=== PATIENT | female | born 1945 | race Caucasian/White ===

== ENCOUNTER 2016-09-05 12:28 | Emergency (ER) | payer MEDICARE, OTHER ==
[2016-09-05] MEDS ORDERED: ASPIRIN 81 MG TABLET, CHEWABLE PO ONE (12:34)
[2016-09-05 13:10] LABS: ABSOLUTE BASOPHILS # (AUTO) 0.1 10^3/uL (0.0-0.2); ABSOLUTE EOSINOPHILS # (AUTO) 0.1 10^3/uL (0.0-0.6); ABSOLUTE LYMPHOCYTES (AUTO) 1.7 10^3/uL (0.5-4.7); ABSOLUTE MONOCYTES (AUTO) 0.5 10^3/uL (0.1-1.4); ABSOLUTE NEUT (AUTO) 5.2 10^3/uL (1.7-8.2); BASOPHILS % (AUTO) 0.9 % (0-2); EOSINOPHILS % (AUTO) 1.8 % (0-6); HEMATOCRIT 38.1 % (36.0-47.0); HEMOGLOBIN 12.9 g/dL (12.0-15.5); HGB HCT DIFFERENCE 0.6; LYMPHOCYTES % (AUTO) 22.4 % (13-45); MEAN CORPUSCULAR HEMOGLOBIN 29.8 pg (27.0-33.4); MEAN CORPUSCULAR HGB CONC 33.9 g/dL (32.0-36.0); MEAN CORPUSCULAR VOLUME 88 fl (80-97); RED BLOOD COUNT 4.34 10^6/uL (3.72-5.28); RED CELL DISTRIBUTION WIDTH 14.5 % (11.5-14.0); SEGMENTED NEUTROPHILS % (AUTO) 68.9 % (42-78); WHITE BLOOD COUNT 7.5 10^3/uL (4.0-10.5)
[2016-09-05 13:29] LABS: ALANINE AMINOTRANSFERASE 22 U/L (9-52); ALBUMIN 3.9 g/dL (3.5-5.0); ALKALINE PHOSPHATASE 69 U/L (38-126); ANION GAP 11 (5-19); ASPARTATE AMINO TRANSFERASE 27 U/L (14-36); BILIRUBIN,DIRECT 0.1 mg/dL (0.0-0.4); BILIRUBIN,TOTAL 0.5 mg/dL (0.2-1.3); BLOOD UREA NITROGEN 15 mg/dL (7-20); CALCIUM 9.4 mg/dL (8.4-10.2); CARBON DIOXIDE 25 mmol/L (22-30); CHLORIDE 105 mmol/L (98-107); CREATINE KINASE 105 U/L (30-135); CREATININE RESULT 0.85 mg/dL (0.52-1.25); GLUCOSE 109 mg/dL (75-110); POTASSIUM 4.3 mmol/L (3.6-5.0); TOTAL PROTEIN 6.6 g/dL (6.3-8.2)
[2016-09-05 13:39] LABS: CREATINE KINASE MB 3.8 ng/mL (<4.55)
[2016-09-05 13:43] LABS: TROPONIN I 0.163 ng/mL
--- NOTE | 2016-09-05 13:46 | ER Document Report ---
ED General - General Chief Complaint: Chest Pain Stated Complaint: CHEST PAIN Mode of Arrival: Medic Information source: Patient Notes: 71 yr old female hx of hypercholesterolemia presents with complaints of chest pain, achy pressure yesterday and then worsened again today with mild radiation of pain to jaw and shoulder. denies any previous pain TRAVEL OUTSIDE OF THE [place] IN LAST 30 DAYS: No - HPI Onset: Yesterday Onset/Duration: Intermittent Quality of pain: Pressure Severity: Mild Pain Level: 1 Associated symptoms: Chest pain Exacerbated by: Denies Relieved by: Denies Similar symptoms previously: No Recently seen / treated by doctor: No - Related Data Allergies/Adverse Reactions: No Known Allergies Allergy (Unverified 02/02/11 16:16) Past Medical History - Social History Smoking Status: Never Smoker Cigarette use (# per day): No Chew tobacco use (# tins/day): No Smoking Education Provided: No Frequency of alcohol use: None Drug Abuse: None Family History: Reviewed & Not Pertinent - Past Medical History Cardiac Medical History: Denies: Hx Coronary Artery Disease, Hx Heart Attack, Hx Hypertension Pulmonary Medical History: Denies: Hx Asthma, Hx Bronchitis, Hx Pneumonia Neurological Medical History: Denies: Hx Cerebrovascular Accident, Hx Seizures Musculoskeltal Medical History: Reports Hx Arthritis Past Surgical History: Denies: Hx Hysterectomy, Hx Pacemaker - Immunizations Hx Diphtheria, Pertussis, Tetanus Vaccination: Yes Review of Systems - Review of Systems Notes: REVIEW OF SYSTEMS: CONSTITUTIONAL : Denies fever, chills, or sweats. Denies recent illness. EENT: Denies eye, ear, throat, or mouth pain or symptoms. Denies nasal or sinus congestion or discharge. Denies throat, tongue, or mouth swelling or difficulty swallowing. CARDIOVASCULAR: Admits chest RESPIRATORY: Denies cough, cold, or chest congestion. Denies shortness of breath, difficulty breathing, or wheezing. GASTROINTESTINAL: Denies abdominal pain or distention. Denies nausea, vomiting , or diarrhea. Denies blood in vomitus, stools, or per rectum. Denies black, tarry stools. Denies constipation. GENITOURINARY: Denies difficulty urinating, painful urination, burning, frequency, blood in urine, or discharge. FEMALE GENITOURINARY: Denies vaginal bleeding, heavy or abnormal periods, irregular periods. Denies vaginal discharge or odor. MUSCULOSKELETAL: Denies back or neck pain or stiffness. Denies joint pain or swelling. SKIN: Denies rash, lesions or sores. HEMATOLOGIC : Denies easy bruising or bleeding. LYMPHATIC: Denies swollen, enlarged glands. NEUROLOGICAL: Denies confusion or altered mental status. Denies passing out or loss of consciousness. Denies dizziness or lightheadedness. Denies headache. Denies weakness or paralysis or loss of use of either side. Denies problems with gait or speech. Denies sensory loss, numbness, or tingling. Denies seizures. PSYCHIATRIC: Denies anxiety or stress. Denies depression, suicidal ideation, or homicidal ideation. ALL OTHER SYSTEMS REVIEWED AND NEGATIVE. Dictation was performed using [employer] voice recognition software PHYSICAL EXAMINATION: GENERAL: Well-appearing, well-nourished and in no acute distress. HEAD: Atraumatic, normocephalic. EYES: Pupils equal round and reactive to light, extraocular movements intact, conjunctiva are normal. ENT: Nares patent, oropharynx clear without exudates. Moist mucous membranes. NECK: Normal range of motion, supple without lymphadenopathy LUNGS: Breath sounds clear to auscultation bilaterally and equal. No wheezes rales or rhonchi. HEART: Regular rate and rhythm without murmurs ABDOMEN: Soft, nontender, nondistended abdomen. No guarding, no rebound. No masses appreciated. Female : deferred Musculoskeletal: Normal range of motion, no pitting or edema. No cyanosis. NEUROLOGICAL: Cranial nerves grossly intact. Normal speech, normal gait. Normal sensory, motor exams PSYCH: Normal mood, normal affect. SKIN: Warm, Dry, normal turgor, no rashes or lesions noted. Physical Exam - Vital signs Vitals: Temp Pulse Resp BP Pulse Ox 98.2 F 70 17 109/69 95 09/05/16 12:34 09/05/16 12:34 09/05/16 12:34 09/05/16 12:34 09/05/16 12:34 Course - Re-evaluation Re-evalutation: 09/05/16 13:48 EKG noted no significant abnormality, lab work pending Patient was given nitroglycerin chest pain improved significantly but she did become mildly hypotensive requiring IV fluids 09/05/16 14:02 Patient's troponin is noted to be elevated, she'll be started on heparin and nitro drips freddy Fairchild has been paged 09/05/16 14:14 - Vital Signs Vital signs: Temp Pulse Resp BP Pulse Ox 98.2 F 70 17 120/105 H 98 09/05/16 12:34 09/05/16 12:34 09/05/16 14:01 09/05/16 14:00 09/05/16 14:01 - Laboratory Result Diagrams: 09/05/16 12:45 09/05/16 12:45 Laboratory results interpreted by me: 09/05/16 12:45 RDW 14.5 H Critical Care Note - Critical Care Note Total time excluding time spent on procedures (mins): 31 Comments: 31 minutes of critical care time spent in direct contact evaluating and reevaluating the patient, treating symptoms, reviewing labs and studies and speaking with family and consultants excluding any procedures Discharge - Discharge Clinical Impression: Non-ST elevation (NSTEMI) myocardial infarction Condition: Stable Disposition: [facility]
[2016-09-05] MEDS ORDERED: HEPARIN SOD (PORCINE) 1,000 UNIT/ML 10 ML VIAL IV ONE (14:04)
[2016-09-05] MEDS ORDERED: HEPARIN SOD (PORCINE) 1,000 UNIT/ML 10 ML VIAL IV PRN (14:04)
[2016-09-05] MEDS ORDERED: HEPARIN SODIUM,PORCINE/D5W 250 ML IV PRN (14:04)
[2016-09-05] MEDS ORDERED: NITROGLYCERIN/D5W 250 ML IV PRN (14:06)
[2016-09-05 15:38] LABS: PROTHROMBIN TIME 12.9 SEC (11.4-15.4)
[2016-09-05 15:39] LABS: PARTIAL THROMBOPLASTIN TIME 30.4 SEC (23.5-35.8)
[2016-09-05 16:37] LABS: APPEARANCE,URINE CLEAR; BILIRUBIN,URINE NEGATIVE (NEGATIVE); GLUCOSE, URINE NEGATIVE (NEGATIVE); KETONES,URINE TRACE mg/dL (NEGATIVE); LEUKOCYTE ESTERASE,URINE NEGATIVE (NEGATIVE); NITRITE,URINE NEGATIVE (NEGATIVE); PROTEIN,URINE NEGATIVE (NEGATIVE); URINE SPECIFIC GRAVITY 1.009; UROBILINOGEN,URINE NEGATIVE mg/dL (<2.0)
[2016-09-05] MEDS ORDERED: MORPHINE SULFATE 10 MG/ML INJ IV ONE (16:47)
[2016-09-05] MEDS ORDERED: ONDANSETRON HCL INJ/PF 4 MG/2 ML SDV IV ONE (16:48)
[2016-09-05] MEDS ORDERED: DIPHENHYDRAMINE HCL 50 MG/ML VIAL IV ONE (17:10)
[2016-09-05 18:31] VITALS: BP 117/72
--- NOTE | 2016-09-05 21:57 | EKG REPORT ---
SEVERITY:- NORMAL ECG - SINUS RHYTHM : Confirmed by: Mandi West MD 05-Sep-2016 21:56:06
--- NOTE | 2016-09-05 21:57 | EKG REPORT ---
SEVERITY:- OTHERWISE NORMAL ECG - SINUS RHYTHM BORDERLINE LEFT AXIS DEVIATION : Confirmed by: Mandi West MD 05-Sep-2016 21:56:25
== END 2016-09-05 18:15 | disposition short-term general hospital (02) ==
LOC: ER 12:28
DX: I21.4 Non-ST elevation (NSTEMI) myocardial infarction (principal); R07.9 Chest pain, unspecified; R68.84 Jaw pain; M25.519 Pain in unspecified shoulder
CPT/HCPCS: 93005; 96376; 99291; 96375; 96365; 96366; 96368; 36415; 82553; 82550; 85025; 85610; 85730; 80053; 81001; 84484; 71010; 93010; J1644 ×2; J1200; J2270; J2405; J3490

== ENCOUNTER 2018-04-06 14:52 | Emergency (ER) | payer MEDICARE, OTHER ==
--- NOTE | 2018-04-06 16:19 | ER Document Report ---
HPI - HPI Patient complains to provider of: Left knee injury Time Seen by Provider: 04/06/18 15:21 Onset: This afternoon Onset/Duration: Sudden Quality of pain: Achy Pain Level: 4 Context: Patient was attempted to break a tree limb by standing on it. Patient complains of left knee tenderness. Patient denies falling and injuring the knee. Patient complains of pain with weightbearing. Associated Symptoms: Other - Left knee pain. denies: Fever Exacerbated by: Standing, Movement, Walking Relieved by: Denies Similar symptoms previously: No Recently seen / treated by doctor: No - ROS ROS below otherwise negative: Yes Systems Reviewed and Negative: Yes All other systems reviewed and negative - NEURO Neurology: DENIES: Weakness - MUSCULOSKELETAL Musculoskeletal: REPORTS: Extremity pain - L knee - DERM Skin Color: Normal Skin Problems: None Past Medical History - General Information source: Patient - Social History Smoking Status: Never Smoker Chew tobacco use (# tins/day): No Frequency of alcohol use: Rare Drug Abuse: None Occupation: None Lives with: Family Family History: Reviewed & Not Pertinent Patient has suicidal ideation: No Patient has homicidal ideation: No - Past Medical History Cardiac Medical History: Reports: Hx Heart Attack, Hx Hypercholesterolemia, Hx Hypertension Denies: Hx Coronary Artery Disease Pulmonary Medical History: Neurological Medical History: Denies: Hx Cerebrovascular Accident, Hx Seizures Renal/ Medical History: Denies: Hx Peritoneal Dialysis Musculoskeletal Medical History: Reports Hx Arthritis Surgical Hx: Negative - Immunizations Hx Diphtheria, Pertussis, Tetanus Vaccination: Yes Vertical Provider Document - CONSTITUTIONAL Agree With Documented VS: Yes Exam Limitations: No Limitations General Appearance: WD/WN, No Apparent Distress - INFECTION CONTROL TRAVEL OUTSIDE OF THE [place] IN LAST 30 DAYS: No - HEENT HEENT: Atraumatic, Normocephalic - NECK Neck: Normal Inspection - RESPIRATORY Respiratory: No Respiratory Distress - CARDIOVASCULAR Pulses: Normal: Dorsalis pedis - BACK Back: Normal Inspection - MUSCULOSKELETAL/EXTREMETIES Musculoskeletal/Extremeties: MAEW, Tender - Left knee joint tenderness over patella, no obvious joint effusion, no laxity with varus or valgus maneuvers. Patellar tendon intact. - NEURO Level of Consciousness: Awake, Alert, Appropriate Motor/Sensory: No Motor Deficit - DERM Integumentary: Warm, Dry, No Rash Course - Vital Signs Vital signs: Temp Pulse Resp BP Pulse Ox 97.9 F 61 16 123/72 100 04/06/18 14:52 04/06/18 14:52 04/06/18 14:52 04/06/18 14:52 04/06/18 14:52 - Diagnostic Test Radiology reviewed: Pending, Image reviewed Procedures - Immobilization Left Knee Pre-Proc Neuro Vasc Exam: Normal Immobilizer type: Knee immobilizer Performed by: PCT Post-Proc Neuro Vasc Exam: Normal Alignment checked and good: Yes Discharge - Discharge Clinical Impression: Left knee sprain Qualifiers: Encounter type: initial encounter Involved ligament of knee: unspecified ligament Qualified Code(s): S83.92XA - Sprain of unspecified site of left knee, initial encounter Condition: Stable Disposition: HOME, SELF-CARE Instructions: Use of Crutches ([facility]), Ice & Elevation ([facility]), Knee Immobilizing Splint ([facility]), Sprained Knee ([facility]) Additional Instructions: Return immediately for any new or worsening symptoms Followup with your primary care provider, call tomorrow to make a followup appointment Weightbearing as tolerated Follow-up with orthopedics for any persistent pain or problems Prescriptions: Walker [Folding Walker] 1 each ASDIR PRN #1 each PRN Reason: Referrals: [facility] ([facility]) [Provider Group] - Follow up as needed
--- NOTE | 2018-04-06 16:40 | RADIOLOGY REPORT (SQ) ---
EXAM DESCRIPTION: KNEE LEFT 4 VIEW COMPLETED DATE/TIME: 04/06/2018 4:15 pm REASON FOR STUDY: pain after attempting break stick COMPARISON: None. NUMBER OF VIEWS: Four views. TECHNIQUE: AP, lateral, and both oblique radiographic images acquired of the left knee. LIMITATIONS: None. FINDINGS: MINERALIZATION: Normal. BONES: No acute fracture or dislocation. No worrisome bone lesions. JOINT: No effusion. SOFT TISSUES: No soft tissue swelling. No radio-opaque foreign body. OTHER: No other significant finding. IMPRESSION: NEGATIVE STUDY OF THE LEFT KNEE. NO RADIOGRAPHIC EVIDENCE OF ACUTE INJURY. TECHNICAL DOCUMENTATION: JOB ID: [id number] [employer]- All Rights Reserved Reading location - IP/workstation name: [email or web address]
[2018-04-06 17:03] VITALS: BP 141/70
== END 2018-04-06 17:03 | disposition home or self-care (01) ==
LOC: ER 14:52
DX: S83.92XA Sprain of unspecified site of left knee, initial encounter (principal); M25.562 Pain in left knee; X58.XXXA Exposure to other specified factors, initial encounter; I10 Essential (primary) hypertension
CPT/HCPCS: 99283; 73564; L1830

== ENCOUNTER 2018-09-20 11:19 | Emergency (ER) | payer MEDICARE, OTHER ==
[2018-09-20] MEDS ORDERED: METHOCARBAMOL 500 MG TABLET PO ONE (13:29)
[2018-09-20] MEDS ORDERED: LIDOCAINE 5% (700 MG) TRANSDERMAL ADH..PATCH TP ONE (13:29)
--- NOTE | 2018-09-20 13:31 | ER Document Report ---
HPI - HPI Time Seen by Provider: 09/20/18 13:08 Pain Level: 5 Notes: Ms. Almazan is a 73-year-old female presenting to the emergency department with chief complaint of lumbar back pain. Patient reports she was sitting on the floor playing a game of cards with her son when she went to get up she felt a popping sensation in her lower back on the left side. She states this occurred last night. She states pain has continued through the day. Patient denies any bowel incontinence, urinary retention or saddle anesthesia. Patient states the pain radiates down into her buttock. Patient has had a history of "throwing out her back". - CONSTITUTIONAL Constitutional: DENIES: Fever, Chills Past Medical History - General Information source: Patient - Social History Smoking Status: Never Smoker Frequency of alcohol use: None Drug Abuse: None Family History: Reviewed & Not Pertinent Patient has suicidal ideation: No Patient has homicidal ideation: No - Past Medical History Cardiac Medical History: Reports: Hx Hypercholesterolemia Denies: Hx Coronary Artery Disease, Hx Heart Attack, Hx Hypertension Pulmonary Medical History: Denies: Hx Asthma, Hx Bronchitis, Hx Pneumonia Neurological Medical History: Denies: Hx Cerebrovascular Accident, Hx Seizures Renal/ Medical History: Denies: Hx Peritoneal Dialysis Musculoskeletal Medical History: Reports Hx Arthritis Past Surgical History: Denies: Hx Hysterectomy, Hx Pacemaker - Immunizations Hx Diphtheria, Pertussis, Tetanus Vaccination: Yes Vertical Provider Document - CONSTITUTIONAL Notes: PHYSICAL EXAMINATION: GENERAL: Well-appearing, well-nourished and in no acute distress. HEAD: Atraumatic, normocephalic. EYES: Pupils equal round extraocular movements intact, conjunctiva are normal. ENT: Nares patent NECK: Normal range of motion LUNGS: No respiratory distress Musculoskeletal: Normal range of motion, tenderness to palpation to bilateral paraspinous muscles in the lumbar region. No vertebral tenderness, step-off or deformity noted. NEUROLOGICAL: Normal speech, normal gait. PSYCH: Normal mood, normal affect. SKIN: Warm, Dry, normal turgor, no rashes or lesions noted. - INFECTION CONTROL TRAVEL OUTSIDE OF THE [place] IN LAST 30 DAYS: No Course - Re-evaluation Re-evalutation: Patient's physical examination as well as history are consistent with musculoskeletal strain. Patient will be started on Robaxin and encouraged to take ibuprofen. Patient is agreeable to this plan, states she has had similar symptoms in the past and muscle relaxers and pain medications have worked well for her. Patient encouraged to follow-up with her primary care and 3 to 5 days if not improving, return to the emergency department for any new or worsening symptoms. Patient and family member at bedside are agreeable to same. - Vital Signs Vital signs: Temp Pulse Resp BP Pulse Ox 97.4 F 58 L 16 125/74 100 09/20/18 11:28 09/20/18 11:28 09/20/18 11:28 09/20/18 11:28 09/20/18 11:28 Discharge - Discharge Clinical Impression: Lumbar back pain Condition: Stable Disposition: HOME, SELF-CARE Additional Instructions: Please take medications as prescribed. You may also use a heating pack to the area. If your pain has not significantly improved over the next 5 to 7 days please follow-up with your primary care provider. If your pain worsens or you have an episode of bowel incontinence, urinary retention or numbness please return to the emergency department. Prescriptions: Lidocaine [Lidoderm 5% (700 mg) Transdermal Patch] 1 patch TP DAILY #30 adh..patch Methocarbamol [Robaxin 500 mg Tablet] 500 mg PO QID #24 tablet Referrals: JUANI YARBROUGH MD [Primary Care Provider] - Follow up as needed
[2018-09-20 13:55] VITALS: BP 116/55
== END 2018-09-20 13:55 | disposition home or self-care (01) ==
LOC: ER 11:19
DX: M54.5 Low back pain (principal)
CPT/HCPCS: 99283; A9270